=== PATIENT | female | born 1945 | race Caucasian/White ===

== ENCOUNTER → 2024-04-01 10:06 | Outpatient (REF) | payer OTHER, SELFPAY ==
[2024-04-01 11:10] LABS: % Basophils 0.2 % (0-2); % Eosinophils 0.9 % (0-6); % Immature Granulocytes 0.2 % (0-0.5); % Lymphocytes 30.7 % (20.5-51.1); % Monocytes 7.1 % (1.7-9.3); % Neutrophils 60.9 % (42.2-75.2); Absolute Eosinophils 0.1 10^3/uL (0-0.7); Absolute Monocytes 0.5 10^3/uL (0.1-0.6); Absolute Neutrophils 3.9 10^3/uL (1.4-6.5); Hematocrit 33.5 % (37.0-47.0); Hemoglobin 11.3 g/dL (12.0-16.0); Mean Corp Hgb Conc. 33.7 g/dL (33.0-37.0); Mean Corpuscular Hgb 29.9 pg (27.0-31.0); Mean Corpuscular Volume 88.6 fL (81.0-99.0); Mean Platelet Volume 9.8 fL (7.4-10.4); Nucleated Red Blood Cells % 0 %; Platelet Count 329 10^3/uL (130-400); Red Blood Cell Count 3.78 10^6/uL (4.20-5.40); Red Cell Dist. Width 13.2 % (11.5-14.5); White Blood Cell Count 6.4 10^3/uL (4.8-10.8)
[2024-04-01 11:32] LABS: ALT (SGPT) 16 U/L (0-35); AST (SGOT) 28 U/L (14-36); Albumin 4.5 g/dl (3.5-5.0); Alkaline Phosphatase 64 U/L (38-126); Blood Urea Nitrogen 24 mg/dl (7-17); Calcium 10.4 mg/dl (8.4-10.2); Carbon Dioxide 24 mmol/L (22-30); Chloride 103 mmol/L (98-107); Glucose 101 mg/dl (70-99); Potassium 4.7 mmol/L (3.5-5.1); Sodium 136 mmol/L (135-145); Total Bilirubin 0.6 mg/dl (0.2-1.3); Total Cholesterol 255 mg/dl (50-199); Total Protein 7.7 g/dl (6.3-8.2); Triglyceride 112 mg/dl (10-149); Very Low Density Lipoprotein 22 mg/dl (0-30); eGFR > 60.00
[2024-04-01 11:44] LABS: HDL Cholesterol 119 mg/dl; LDL Cholesterol, Calculated 114 mg/dl
== END ==
LOC: REG 10:06
PROVIDERS: ATTENDING PHYSICIAN Family Medicine
DX: I10 Essential (primary) hypertension (principal); E78.00 Pure hypercholesterolemia, unspecified; D64.9 Anemia, unspecified
CPT/HCPCS: 36415; 80053; 80061; 85025

== ENCOUNTER → 2024-04-11 14:05 | Outpatient (REF) | payer OTHER, SELFPAY | LOC: WDC 14:05 | PROVIDERS: ATTENDING PHYSICIAN Family Medicine | DX: Z12.31 Encounter for screening mammogram for malignant neoplasm of breast (principal) | CPT/HCPCS: 77063; 77067 ==

== ENCOUNTER → 2024-04-12 09:55 | Outpatient (REF) | payer OTHER, SELFPAY ==
[2024-04-12 11:58] LABS: Calcium 9.8 mg/dl (8.4-10.2); Iron 109 ug/dl (37-170)
[2024-04-12 12:08] LABS: Percent Saturation 50 % (20-50); Total Iron Binding Capacity 214 ug/dl (265-497)
[2024-04-12 12:59] LABS: Folate 10.6 ng/ml (2.76-20); Vitamin B12 > 1000 pg/ml (239-931)
== END ==
LOC: REG 09:55
PROVIDERS: ATTENDING PHYSICIAN Physician Assistant
DX: E83.52 Hypercalcemia (principal); D64.9 Anemia, unspecified
CPT/HCPCS: 36415; 82310; 82607; 82728; 82746; 83540; 83550

== ENCOUNTER 2024-12-09 10:57 | Outpatient (RCR) | payer OTHER, SELFPAY | END 2024-12-09 23:59 | disposition home or self-care (01) | LOC: RPT 10:57 | PROVIDERS: ATTENDING PHYSICIAN Specialist; FAMILY PHYSICIAN Family Medicine | DX: M17.12 Unilateral primary osteoarthritis, left knee (principal); Z73.6 Limitation of activities due to disability; M62.81 Muscle weakness (generalized) | CPT/HCPCS: 97110; 97140; 97162; 97530 ==

== ENCOUNTER 2025-01-09 11:00 | Outpatient (RCR) | payer OTHER, SELFPAY | END 2025-01-09 23:59 | disposition home or self-care (01) | LOC: RPT 11:00 | PROVIDERS: ATTENDING PHYSICIAN Specialist; FAMILY PHYSICIAN Family Medicine | DX: M17.12 Unilateral primary osteoarthritis, left knee (principal); Z73.6 Limitation of activities due to disability; M62.81 Muscle weakness (generalized); R26.89 Other abnormalities of gait and mobility | CPT/HCPCS: 97110; 97140; 97530 ==